=== PATIENT | female | born 1940 | race Caucasian/White ===

== ENCOUNTER → 2017-04-16 | Outpatient (CLI) | payer MEDICARE, BC ==
--- NOTE | 2017-04-17 09:51 | KCIC ---
MR of the right hip Indication: Pain after a fall 3 weeks ago. Pain with weightbearing. Technique: Standard multiplanar sequences are obtained. Findings: Fracture of the right superior pubic ramus extending to the pubic bone appears comminuted. No gross displacement. Fracture of the inferior pubic ramus. No gross displacement. There does appear to be at least a small amount of callus formation suggesting nonacute etiology. These could be consistent with the history of injury 3 weeks ago. There is some edema within the adjacent muscle tissue. There is intramuscular edema within the obturator internus and externus muscles. Small complex fluid pockets in the region of the obturator internus and obturator externus muscles, largest of which contains a fluid level and measures 2.5 cm diameter. In this clinical setting these likely represent hematomas. There is also some intramuscular edema within the pectineus and proximal abductor muscles. No significant joint effusion. Labrum appears mildly distorted compatible with degeneration but no evidence of detachment. The gluteus minimus tendon is poorly visualized at the attachment compatible with a high-grade tear. Likely chronic due to the lack of much fluid and edema here. The gluteus medius tendon demonstrates some tendinosis but no high-grade tear. Iliopsoas tendon intact. Hamstring tendon attachment intact. Rectus femoris tendon attachment intact. Diagnostically limited coronal survey sequence demonstrates no acute findings at the contralateral hip. IMPRESSION: 1. Comminuted nondisplaced posttraumatic fractures of the right superior and inferior pubic rami and pubic bone. Appearance could be compatible with injury 3 weeks ago. There is adjacent soft tissue and intramuscular injury with small fluid pockets or hematomas. 2. Poorly visualized right gluteus minimus tendon, cystic just above a chronic high-grade tear or rupture. Right gluteus medius tendinosis. Electronically signed by: Tee Degroot MD (04/17/2017 9:49 AM) [facility]
== END | disposition home or self-care (01) ==
LOC: KCIC MRI 16:42
PROVIDERS: ATTEND Internal Medicine
DX: S32.511A Fracture of superior rim of right pubis, initial encounter for closed fracture (principal); X58.XXXA Exposure to other specified factors, initial encounter; Y93.89 Activity, other specified; Y92.89 Other specified places as the place of occurrence of the external cause; Y99.8 Other external cause status
CPT/HCPCS: 73721

== ENCOUNTER → 2017-05-15 | Outpatient (CLI) | payer MEDICARE, BC ==
--- NOTE | 2017-05-15 14:10 | KCIC ---
MR of the right shoulder Indication: Right shoulder pain. Injury several weeks ago. Pain since that time. Technique: Standard multiplanar sequences are obtained. Findings: Acromioclavicular joint: Mildly degenerative. Rotator cuff: Complete full-thickness rupture of the supraspinatus and infraspinatus tendons. Retraction measures about 3.5 cm, to the superior glenoid. Moderate muscle atrophy with volume loss and fatty infiltration. Acute edema within the infraspinatus muscle. Subscapularis tendinosis with mild tearing. Glenohumeral cartilage: Humerus is high riding. Mild primary osteoarthritis. Fluid: Small joint effusion. Labrum: No evidence of labral tear or para labral cyst. Biceps tendon: Poorly visualized. Bones: Heterogeneous marrow signal within the proximal humeral shaft does not demonstrate aggressive hypointensity, and likely represent some red marrow reconversion. No significant marrow pathology or acute fracture. Soft tissue: No acute findings. Impression: 1. Complete supraspinatus and infraspinatus tendon rupture with retraction. Acute edema suggests recent nature. Partial subscapularis tendon tear. 2. Poorly visualized biceps tendon, compatible with a tear. Electronically signed by: Tee Degroot MD (05/15/2017 2:07 PM) [facility]
== END | disposition home or self-care (01) ==
LOC: KCIC MRI 12:46
PROVIDERS: ATTEND Internal Medicine
DX: S46.811A Strain of other muscles, fascia and tendons at shoulder and upper arm level, right arm, initial encounter (principal); X58.XXXA Exposure to other specified factors, initial encounter; Y93.89 Activity, other specified; Y92.89 Other specified places as the place of occurrence of the external cause; Y99.8 Other external cause status
CPT/HCPCS: 73221